=== PATIENT | male | born 2005 | race Caucasian/White ===

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

== ENCOUNTER 2023-10-05 03:25 | Emergency (ER) | payer OTHER ==
[~2023-10-05] VITALS: Ht 172.7 cm; Wt 84.4 kg
[2023-10-05 03:34] VITALS: BP 131/96; PULSE 130; RESP 16; TEMP 97.1; O2SAT 99
== END 2023-10-05 03:54 | disposition left against medical advice (07) ==
LOC: MED 03:25
DX: F10.129 Alcohol abuse with intoxication, unspecified (principal); Z53.21 Procedure and treatment not carried out due to patient leaving prior to being seen by health care provider; Y90.9 Presence of alcohol in blood, level not specified
CPT/HCPCS: 99281

== ENCOUNTER 2024-05-02 07:17 | Emergency (ER) | payer OTHER ==
[~2024-05-02] VITALS: Ht 165.1 cm; Wt 81.6 kg
[2024-05-02 07:39] VITALS: BP 130/70; PULSE 90; RESP 16; TEMP 97.9; O2SAT 96
[2024-05-02] MEDS: KETOROLAC 60 MG/2 ML VIAL IM ONE (08:06)
[2024-05-02] MEDS ORDERED: HYDR-5071 PO (08:51)
[2024-05-02] MEDS ORDERED: IBUP-2213 PO (08:51)
[2024-05-02 09:20] VITALS: BP 132/70; PULSE 76; RESP 18; O2SAT 78
== END 2024-05-02 09:21 | disposition home or self-care (01) ==
LOC: MED 07:17
DX: S52.572A Other intraarticular fracture of lower end of left radius, initial encounter for closed fracture (principal); M25.511 Pain in right shoulder; M25.512 Pain in left shoulder; F12.90 Cannabis use, unspecified, uncomplicated; Z85.51 Personal history of malignant neoplasm of bladder; Z98.890 Other specified postprocedural states; Z91.018 Allergy to other foods; V23.41XA Electric (assisted) bicycle driver injured in collision with car, pick-up truck or van in traffic accident, initial encounter; Y93.55 Activity, bike riding; Y92.410 Unspecified street and highway as the place of occurrence of the external cause; Y99.8 Other external cause status
CPT/HCPCS: 29105; 73030; 73110; 96372; 99284; J1885

== ENCOUNTER 2024-05-12 12:36 | Emergency (ER) | payer OTHER ==
[~2024-05-12] VITALS: Ht 165.1 cm; Wt 81.6 kg
[~2024-05-12 12:36] MED LIST: HYDR-5071 PO; IBUP-2213 PO
[2024-05-12 13:12] VITALS: BP 135/85; PULSE 94; RESP 18; TEMP 97.7; O2SAT 99
[2024-05-12] MEDS: KETOROLAC 30 MG/ML VIAL IM ONE (14:40)
[2024-05-12] MEDS: HYDROcodone/APAP 5/325 MG 1 TAB TAB PO ONE (14:42)
[2024-05-12] MEDS ORDERED: IBUP-2213 PO (15:21)
== END 2024-05-12 15:29 | disposition home or self-care (01) ==
LOC: MED 12:36
DX: M79.642 Pain in left hand (principal); R03.0 Elevated blood-pressure reading, without diagnosis of hypertension; Z79.899 Other long term (current) drug therapy; Z85.51 Personal history of malignant neoplasm of bladder; Z91.018 Allergy to other foods
CPT/HCPCS: 29105; 96372; 99283; J1885